=== PATIENT | female | born 1935 | race African-American/Black ===

== ENCOUNTER → 2019-08-16 | Outpatient (CLI) | payer MEDICARE, OTHER ==
--- NOTE | 2019-08-16 16:19 | CARD ---
MR#: [id number] Date of Study: 08/16/2019 Ordering Physician: ODALYS WALDRON, Referring Physician: ODALYS WALDRON, Tech: Mayela Leblanc MARIE APPROVED REPORT EXAM: Two-dimensional and M-mode echocardiogram with Doppler and color Doppler. Other Information Quality : GoodHR: 62bpm Rhythm : NSR INDICATION CAD 2D DIMENSIONS RVDd2.9 (2.9-3.5cm)Left Atrium(2D)3.4 (1.6-4.0cm) IVSd1.2 (0.7-1.1cm)Aortic Root(2D)3.3 (2.0-3.7cm) LVDd5.4 (3.9-5.9cm)LVOT Diameter1.9 (1.8-2.4cm) PWd0.9 (0.7-1.1cm)LVDs4.2 (2.5-4.0cm) FS (%) 21.5 %SV60.5 ml M-Mode DIMENSIONS Left Atrium(MM)4.18 (2.5-4.0cm)Aortic Root3.48 (2.2-3.7cm) Aortic Valve AoV Peak Bruce.137.1cm/sAoV VTI27.5cm AO Peak GR.7.5mmHgLVOT Peak Bruce.118.8cm/s LVOT VTI 26.48cmAO Mean GR.4mmHg SHRUTHI (VMAX)2.64hh9TGN (VTI)2.59cm2 AI P 1/2 [id number] Mitral Valve MV E Hrxdnnhz533.5cm/sMV E Peak Gr.102mmHg MV DECEL [id number] A Pcekhykr570.7cm/s MV E Mean Gr.6mmHgE/A Ratio1.2 Pulmonary Valve PV Peak Wdqtmfnr354.7cm/sPV Peak Grad.9mmHg Tricuspid Valve TR P. Nhwynxyd973lj/sRAP TYUVNOJR4plPj TR Peak Gr.01glZeOEMO08vbIy Pulmonary Vein S1 Xiaymhnx42.1cm/sD2 Yqigqsrv61.1cm/s Shunt Evaluation Systemic Diam27.0cmPulmonic Diam34.0cm LEFT VENTRICLE The left ventricle is normal size. Proximal septal thickening is noted. The left ventricular systolic function is normal and the ejection fraction is within normal range. The Ejection Fraction is 55-60% . There is normal LV segmental wall motion. Transmitral Doppler flow pattern is Grade II-pseudonormal filling dynamics. No left ventricle thrombus noted on this study. There is a small to moderate sized muscular ventricular septal defect. There is no left ventricular aneurysm. There is no mass noted in the left ventricle. RIGHT VENTRICLE The right ventricle is normal size. There is normal right ventricular wall thickness. The right ventr icular systolic function is normal. ATRIA The left atrium is mildly dilated. The right atrium is mildly dilated. The interatrial septum is inta ct with no evidence for an atrial septal defect or patent foramen ovale as noted on 2-D or Doppler im aging. AORTIC VALVE The aortic valve is thickened but opens well. The aortic valve is trileaflet. Doppler and Color Flow revealed mild aortic regurgitation. There is no significant aortic valvular stenosis. There is no aor tic valvular vegetation. MITRAL VALVE Mitral annular calcification is moderate. There is no evidence of mitral valve prolapse. There is mil d mitral valve stenosis. Doppler and Color-flow revealed mild to moderate mitral regurgitation. TRICUSPID VALVE The tricuspid valve is normal in structure and function. Doppler and Color Flow revealed mild tricusp id regurgitation. There is no tricuspid valve prolapse or vegetation. There is no tricuspid valve mary nosis. PULMONIC VALVE The pulmonary valve is normal in structure and function. Doppler and Color Flow revealed no pulmonic valvular regurgitation. There is no pulmonic valvular stenosis. GREAT VESSELS The aortic root is normal in size. The ascending aorta is normal in size. The IVC is normal in size a nd collapses >50% with inspiration. PERICARDIAL EFFUSION There is no evidence of significant pericardial effusion. Critical Notification Critical Value: No <Conclusion> The left ventricle is normal size. The left ventricular systolic function is normal and the ejection fraction is within normal range. The Ejection Fraction is 55-60%. There is a small to moderate sized muscular ventricular septal defect. Doppler and Color Flow revealed mild aortic regurgitation. There is no significant aortic valvular stenosis. There is mild mitral valve stenosis. Doppler and Color-flow revealed mild to moderate mitral regurgitation. Doppler and Color Flow revealed mild tricuspid regurgitation. Signed by : Camron Thomson MD Electronically Approved : 08/16/2019 16:18:57
== END | disposition home or self-care (01) ==
LOC: ECHO 13:46
PROVIDERS: ATTEND Internal Medicine Cardiovascular Disease
DX: I08.3 Combined rheumatic disorders of mitral, aortic and tricuspid valves (principal); I25.10 Atherosclerotic heart disease of native coronary artery without angina pectoris
CPT/HCPCS: 93306

== ENCOUNTER 2021-01-07 14:29 | Inpatient (IN) | payer OTHER ==
[~2021-01-07] VITALS: Ht 165.1 cm; Wt 54.6 kg
--- NOTE | 2021-01-07 14:51 | PHYS DOC ---
Adult General HPI HPI Patient is a 85-year-old female presenting for shortness of breath. Reports onset was a few days ago but worsened yesterday evening. Reports laying flat and physical exertion makes worse, nothing known makes better. Denies any pain, no fever, recent sick contacts or long distance travel. Recently moved here from [facility] and establish care with Dr. Sutherland. She is pending disassembler product consultation in outpatient setting with [facility]. Has history of CVA and is on aspirin and Plavix therapy but denies any other known history of CAD or SD. Patient also admits being immunocompromise, has history of rheumatoid arthritis and takes methotrexate and daily 5 mg prednisone Review of Systems Review of Systems Fourteen body systems of review of systems have been reviewed. See HPI for pertinent positives and negative responses, other grimes all other systems are negative, non-pertinent or non-contributory Current Medications Current Medications Current Medications Nitroglycerin (Nitrostat) 0.4 mg PRN Q5MIN PRN SL CHEST PAIN Last administered on 01/07/21at 16:18; Start 01/07/21 at 16:00 Physical Exam Physical Exam Constitutional: Well developed, well nourished, no acute distress, non-toxic appearance. HENT: Normocephalic, atraumatic, bilateral external ears normal, oropharynx moist, no oral exudates, nose normal. Eyes: PERRLA, EOMI, conjunctiva normal, no discharge. Neck: Normal range of motion, no tenderness, supple, no stridor. Cardiovascular: Heart rate regular, sinus rhythm, no murmurs rubs or gallops, patient did become dyspneic when laid supine Lungs & Thorax: No overt respiratory failure but there is crackles and rales in bilateral lung lobes, patient is breathing through pursed lips and tachypneic Abdomen: Bowel sounds normal, soft, no tenderness, no masses, no pulsatile masses. Nonsurgical abdomen, no peritoneal signs Skin: Warm, dry, no erythema, no rash. Back: No tenderness, no CVA tenderness. Extremities: No tenderness, no cyanosis, no clubbing, ROM intact, no edema. Neurologic: Alert and oriented X 3, grossly normal motor & sensory function, no focal deficits noted. Psychologic: Depressed affect and mood Current Patient Data Vital Signs Vital Signs Date Time Temp Pulse Resp B/P (MAP) Pulse Ox O2 Delivery O2 Flow Rate FiO2 01/07/21 14:35 97.9 76 32 193/83 (119) 96 Room Air Vital Signs Date Time Temp Pulse Resp B/P (MAP) Pulse Ox O2 Delivery O2 Flow Rate FiO2 01/07/21 16:29 72 20 164/76 (105) 94 Room Air 01/07/21 14:35 97.9 Lab Results Laboratory Tests Test 01/07/21 15:55 White Blood Count 6.2 x10^3/uL Red Blood Count 2.89 x10^6/uL Hemoglobin 8.3 g/dL Hematocrit 25.8 % Mean Corpuscular Volume 89 fL Mean Corpuscular Hemoglobin 29 pg Mean Corpuscular Hemoglobin Concent 32 g/dL Red Cell Distribution Width 19.6 % Platelet Count 221 x10^3/uL Neutrophils (%) (Auto) 72 % Lymphocytes (%) (Auto) 15 % Monocytes (%) (Auto) 9 % Eosinophils (%) (Auto) 4 % Basophils (%) (Auto) 1 % Neutrophils # (Auto) 4.4 x10^3uL Lymphocytes # (Auto) 0.9 x10^3/uL Monocytes # (Auto) 0.5 x10^3/uL Eosinophils # (Auto) 0.2 x10^3/uL Basophils # (Auto) 0.1 x10^3/uL Sodium Level 143 mmol/L Potassium Level 3.8 mmol/L Chloride Level 107 mmol/L Carbon Dioxide Level 22 mmol/L Anion Gap 14 Blood Urea Nitrogen 14 mg/dL Creatinine 1.2 mg/dL Estimated GFR (Cockcroft-Gault) 51.7 Glucose Level 148 mg/dL Calcium Level 8.6 mg/dL Troponin I Quantitative 0.097 ng/mL DZ-Zxx-N-Type Natriuretic Peptide 65951 pg/mL Current Medications Medications (Trade) Dose Ordered Sig/Michael Route PRN Reason Start Time Stop Time Status Last Admin Dose Admin Nitroglycerin (Nitrostat) 0.4 mg PRN Q5MIN PRN SL CHEST PAIN 01/07/21 16:00 01/07/21 16:18 EKG EKG EKG ordered and interpreted by myself at 1450 hrs. as sinus rhythm at 76 bpm, prolonged QRS at 136 and QTC at 486 otherwise unremarkable intervals, no axis deviation, LBBB with negative Sgarbossa criteria, no STEMI Radiology/Procedures Radiology/Procedures EXAM: Chest, single view. HISTORY: Shortness of breath. COMPARISON: None. FINDINGS: A frontal view of the chest obtained. There is diffuse mixed interstitial and alveolar infiltrate with small pleural effusions and cardiomega ly. There are median sternotomy changes. There is no pneumothorax. IMPRESSION: Diffuse mixed interstitial and alveolar infiltrate with small pleural effusions and cardiomegaly. Correlate for congestion. Electronically signed by: Allison Kyle MD (01/07/2021 3:52 PM) [id number] Heart Score C/O Chest Pain: No HEART Score for Chest Pain: HEART Score for Chest Pain Response (Comments) Value History Moderately Suspicious 1 ECG Nonspecific Repolarizatio 1 Age > 65 2 Risk Factors >3 Risk Factors or Hx CAD 2 Troponin >1-<3x Normal Limit 1 Total 7 Risk Factors: Risk Factors: DM, Current or recent (<one month) smoker, HTN, HLP, family history of CAD, obesity. Risk Scores: Risk Factors: DM, Current or recent (<one month) smoker, HTN, HLP, family history of CAD, obesity. Course & Med Decision Making Course & Med Decision Making Airway patent, breathing unlabored, IV access and vitals obtained showing hypertensive and tachypneic patient HPI limited due to the fact that patient is a poor historian. Physical exam concerning for pulmonary congestion. ER work-up obtained showing fluid overloaded patient. Prior paperwork reviewed, appears patient was discontinued from Lasix 1 month ago. Patient has midline chest incision and sternotomy wires but is unsure if she had prior CABG, it is unknown if she has history of CHF or other cardiac diagnoses or why she is following up with cardiology Regardless, I discussed the fact that patient is fluid overloaded that is likely causing her elevated troponin. No indication for emergent or surgical pathology but patient is not fit for discharge home at present. 80 mg IV Lasix, 162 mg aspirin, and x1 sublingual nitro administered I contacted hospitalist and discussed need for admission, he agreed to accept patient under his care for continued inpatient medical management I updated patient and daughter at bedside on proposed plan of care that included hospital admission, they were amenable. They confirm patient is DNR status at this time Critical Care Time This patient required critical care. Due to the fact that the patient required a significant amount of one on one physician - patient contact time, ordering and review of studies, arranging urgent treatment with development of a management plan, evaluation of patients response to treatment with frequent reassessments, and discussions with other providers this patient required 50 minutes of critical care time. Critical care time was indicated due to the inherent instability and/or potential for instability in this patient. The critical care time that is allocated to this patient is above and beyond any time spent on any other billable procedures performed on this patient. Dragon Disclaimer Dragon Disclaimer This electronic medical record was generated, in whole or in part, using a voice recognition dictation system. Departure Departure: Impression: Primary Impression: Fluid overload Additional Impressions: HTN (hypertension) History of CVA (cerebrovascular accident) Rheumatoid arthritis Elevated troponin Disposition: ADMITTED INPATIENT Admitting Physician: Carlton Thibodeaux Condition: STABLE Referrals: JOANIE SUTHERLAND MD (PCP) Problem Qualifiers HOA RAZA DO Jan 07, 2021 14:51
--- NOTE | 2021-01-07 15:34 | EKG ---
[address] [address] Test Date: 2021-01-07 Test Time: 14:44:27 Pat Name: MARISELA JOHNSON Department: Room: Gender: F Director Of Broadcast: BLAKE : 1935 Requested By: HOA RAZA Order Number: [id number] Reading MD: Measurements Intervals [place] Rate: 76 P: 9 MS: 134 QRS: 20 QRSD: 136 T: 40 QT: 428 QTc: 486 Interpretive Statements SINUS RHYTHM LEFT ATRIAL ABNORMALITY LEFT BUNDLE BRANCH BLOCK ABNORMAL ECG RI6.02 No previous ECG available for comparison
--- NOTE | 2021-01-07 15:55 | RAD ---
EXAM: Chest, single view. HISTORY: Shortness of breath. COMPARISON: None. FINDINGS: A frontal view of the chest obtained. There is diffuse mixed interstitial and alveolar infi ltrate with small pleural effusions and cardiomegaly. There are median sternotomy changes. There is n o pneumothorax. IMPRESSION: Diffuse mixed interstitial and alveolar infiltrate with small pleural effusions and cardi omegaly. Correlate for congestion. Electronically signed by: Allison Kyle MD (01/07/2021 3:52 PM) [id number]
[2021-01-07] MEDS ORDERED: NITROGLYCERIN SUBLINGUAL 0.4 MG BOTTLE OF 25. SL PRN ×2 (16:00→17:30)
[2021-01-07 16:13] LABS: BASO # 0.1 x10^3/uL (0.0-0.2); BASO % 1 % (0-3); EOS # 0.2 x10^3/uL (0.0-0.7); EOS % 4 % (0-3); HEMATOCRIT 25.8 % (36.0-47.0); HEMOGLOBIN 8.3 g/dL (12.0-15.5); LYMPH # 0.9 x10^3/uL (1.0-4.8); LYMPH % 15 % (24-48); MEAN CORPUSCULAR HEMOGLOBIN 29 pg (25-35); MEAN CORPUSCULAR HGB CONC 32 g/dL (31-37); MEAN CORPUSCULAR VOLUME 89 fL (79-100); MONO # 0.5 x10^3/uL (0.0-1.1); MONO % 9 % (0-9); NEUT # 4.4 x10^3uL (1.8-7.7); NEUT % 72 % (31-73); PLATELET COUNT 221 x10^3/uL (140-400); RED BLOOD COUNT 2.89 x10^6/uL (3.50-5.40); RED CELL DISTRIBUTION WIDTH 19.6 % (11.5-14.5); WHITE BLOOD COUNT 6.2 x10^3/uL (4.0-11.0)
[2021-01-07 16:35] LABS: CALCIUM 8.6 mg/dL (8.5-10.1); CREATININE 1.2 mg/dL (0.6-1.0); GFR 51.7; POTASSIUM 3.8 mmol/L (3.5-5.1)
[2021-01-07] MEDS ORDERED: ASPIRIN CHEWABLE 81 MG TABLET. PO ONE (17:15)
[2021-01-07] MEDS ORDERED: FUROSEMIDE 40 MG/4 ML VIAL IVP ONE (17:15)
[2021-01-07] MEDS ORDERED: ONDANSETRON PF 4 MG/2 ML VIAL. IVP PRN (17:30)
[2021-01-07] MEDS ORDERED: ACETAMINOPHEN 325 MG TABLET PO PRN (17:30)
[2021-01-07] MEDS ORDERED: TIZA4TAB2 PO (19:27)
[2021-01-07] MEDS ORDERED: POTA-163 PO (19:27)
[2021-01-07] MEDS ORDERED: ALEN70TA71 PO (19:27)
[2021-01-07] MEDS ORDERED: DORZ10DR27 EACHEYE (19:27)
[2021-01-07] MEDS ORDERED: AMLO-187 PO (19:27)
[2021-01-07] MEDS ORDERED: CLOP75TA PO (19:27)
[2021-01-07] MEDS ORDERED: ASPI-889 PO (19:27)
[2021-01-07] MEDS ORDERED: CHOL400T36 PO (19:27)
[2021-01-07] MEDS ORDERED: PRED2.5T PO (19:27)
[2021-01-07] MEDS ORDERED: TRAV5DRO EACHEYE (19:27)
[2021-01-07] MEDS ORDERED: CYAN100031 PO (19:27)
[2021-01-07] MEDS ORDERED: FLUT9.9S NS (19:27)
[2021-01-07] MEDS ORDERED: ATORVASTATIN CA80 MG PO (19:27)
[2021-01-07] MEDS ORDERED: METH2.5T PO (19:27)
[2021-01-07] MEDS ORDERED: CARV25TA2 PO (19:27)
[2021-01-07] MEDS ORDERED: FOLI20CA PO (19:27)
[2021-01-07] MEDS ORDERED: ESOM20CA PO (19:27)
[2021-01-07 19:30] VITALS: BP 182/81
[2021-01-07] MEDS ORDERED: tiZANidine 4 MG TABLET. PO PRN (19:45)
[2021-01-07] MEDS ORDERED: POTASSIUM CHLORIDE 20 MEQ TABLET.ER. PO ONE (20:00)
[2021-01-07] MEDS ORDERED: FUROSEMIDE 100 MG/10 ML VIAL IVP ONE (21:00)
[2021-01-07] MEDS: ATORVASTATIN CALCIUM 20 MG TABLET PO SCH (21:08)
[2021-01-07] MEDS: CHOLECALCIFEROL (VITAMIN D3) 1,000 UNIT TABLET PO SCH (21:08)
[2021-01-08 06:21] VITALS: BP 156/69
--- NOTE | 2021-01-08 08:10 | PDOC2 ---
MELISSA FLOWER LANA 01/08/21 0810: CARDIAC CONSULT DATE OF CONSULT DOS: DATE: 01/08/21 TIME: 08:07 REASON FOR CONSULT Reason for Consult CHF REFERRING PHYSICIAN Referring Physician Dr. Thibodeaux SOURCE Source: Chart review, Patient HPI History of Present Illness This is an 85 yo female who presented secondary to shortness of breath. Reports she has been short of breath for the last couple of days. Progressively worsened. No chest pain, palpitations, dizziness, diaphoresis, or nausea/vomiting. Feels better s/p IV diuresis. No LE edema. PAST MEDICAL HISTORY Cardiovascular: CAD, CHF, HTN, hyperipidemia, Other (HOCM) CENTRAL NERVOUS SYSTEM: CVA GI: GERD Endocrine: Diabetes PAST SURGICAL HISTORY Past Surgical History: Cholecystectomy, Hysterectomy, Other (myomectomy ) FAMILY HISTORY Family History: Hypertension SOCIAL HISTORY Smoke: No ALCOHOL: none Drugs: None Lives: with Family CURRENT MEDICATIONS Current Medications Current Medications Nitroglycerin (Nitrostat) 0.4 mg PRN Q5MIN PRN SL CHEST PAIN Last administered on 01/07/21at 16:18; Start 01/07/21 at 16:00 Furosemide (Lasix) 80 mg 1X ONCE IVP Last administered on 01/07/21at 17:25; Start 01/07/21 at 17:15; Stop 01/07/21 at 17:16; Status DC Aspirin (Aspirin Chewable) 162 mg 1X ONCE PO Last administered on 01/07/21at 17:23; Start 01/07/21 at 17:15; Stop 01/07/21 at 17:17; Status DC Ondansetron HCl (Zofran) 4 mg PRN Q4HRS PRN IVP NAUSEA/VOMITING; Start 01/07/21 at 17:30; Stop 01/08/21 at 17:29 Acetaminophen (Tylenol) 650 mg PRN Q4HRS PRN PO FEVER > 100.3'F; Start 01/07/21 at 17:30; Stop 01/08/21 at 17:29 Nitroglycerin (Nitrostat) 0.4 mg PRN Q5MIN PRN SL CHEST PAIN; Start 01/07/21 at 17:30; Stop 01/08/21 at 17:29 Amlodipine Besylate (Norvasc) 10 mg DAILY PO ; Start 01/08/21 at 09:00 Aspirin (Aspirin Enteric Coated) 81 mg DAILY PO ; Start 01/08/21 at 09:00 Clopidogrel Bisulfate (Plavix) 75 mg DAILY PO ; Start 01/08/21 at 09:00 Dorzolamide/ Timolol (Cosopt) 1 drop BID OU ; Start 01/08/21 at 09:00 Tizanidine HCl (Zanaflex) 4 mg PRN Q8HRS PRN PO MUSCLE SPASMS; Start 01/07/21 at 19:45 Atorvastatin Calcium (Lipitor) 80 mg QHS PO Last administered on 01/07/21at 21:08; Start 01/07/21 at 21:00 Carvedilol (Coreg) 25 mg BIDWMEALS PO ; Start 01/08/21 at 08:00 Vitamin D (Vitamin D3) 1,000 unit BID PO Last administered on 01/07/21at 21:08; Start 01/07/21 at 21:00 Cyanocobalamin (Vitamin B-12) 1,000 mcg DAILY PO ; Start 01/08/21 at 09:00 Pantoprazole Sodium (Protonix) 40 mg DAILYAC PO ; Start 01/08/21 at 07:30 Fluticasone Propionate (Flonase) 2 spray DAILY NS ; Start 01/08/21 at 09:00 Folic Acid (Folic Acid) 1 mg DAILY PO ; Start 01/08/21 at 09:00 Potassium Chloride (Klor-Con) 20 meq BIDWMEALS PO ; Start 01/08/21 at 08:00 Prednisone (Prednisone) 5 mg DAILY PO ; Start 01/08/21 at 09:00 Latanoprost (Xalatan) 1 drop QHS OD ; Start 01/08/21 at 21:00 Furosemide (Lasix) 80 mg 1X ONCE IVP Last administered on 01/07/21at 21:08; Start 01/07/21 at 21:00; Stop 01/07/21 at 21:01; Status DC Potassium Chloride (Klor-Con) 20 meq 1X ONCE PO Last administered on 01/07/21at 21:07; Start 01/07/21 at 20:00; Stop 01/07/21 at 20:01; Status DC Active Scripts Active Reported Travatan Z (Travoprost) 5 Ml Drops 1 Drop EACHEYE QHS Tizanidine Hcl (Tizanidine HCl) 4 Mg Tablet 4 Mg PO PRN Q8HRS PRN Prednisone 2.5 Mg Tablet 2 Tab PO DAILY Potassium Chloride 20 Meq Tablet.er 20 Meq PO BID Methotrexate (Methotrexate Sodium) 2.5 Mg Tablet 4 Tab PO WEEKLY Folic Acid 20 Mg Capsule 1 Cap PO DAILY 30 Days Flonase Allergy Relief (Fluticasone Propionate) 9.9 Ml [place].susp 2 Sprays NS DAILY Nexium Capsule (Esomeprazole Magnesium) 20 Mg Capsule.dr 1 Cap PO DAILY Dorzolamide-Timolol Eye Drops (Dorzolamide Hcl/Timolol Maleat) 10 Ml Drops 1 Drop EACHEYE BID B-12 (Cyanocobalamin (Vitamin B-12)) 1,000 Mcg Tablet.er 1 Tab PO DAILY 30 Days Clopidogrel (Clopidogrel Bisulfate) 75 Mg Tablet 1 Tab PO DAILY Vitamin D (Cholecalciferol (Vitamin D3)) 400 Unit Tablet 1,000 Unit PO BID Carvedilol 25 Mg Tablet 25 Mg PO BIDWMEALS Atorvastatin Calcium 80 Mg Tablet 1 Tab PO DAILY Aspirin Ec (Aspirin) 81 Mg Tablet.dr 1 Tab PO DAILY Amlodipine Besylate 10 Mg Tablet 1 Tab PO DAILY Alendronate Sodium 70 Mg Tablet 1 Tab PO WEEKLY ALLERGIES Allergies: Coded Allergies: Sulfa (Sulfonamide Antibiotics) (Verified Allergy, Intermediate, 01/07/21) angiotensin II acetate, human (Verified Allergy, Intermediate, 01/07/21) minoxidil (Verified Allergy, Intermediate, 01/07/21) ROS Review of Systems 14 point ROS conducted with pertinent positives noted above in hPI PHYSICAL EXAM General: Alert, Cooperative, No acute distress, Other (oriented to person and place ) HEENT: Atraumatic Lungs: Other (crackles ) Heart: Regular rate, Other (4/6 systolic murmur ) Abdomen: Soft, No tenderness Extremities: No edema Neuro: Normal speech, Sensation intact Psych/Mental Status: Mood NL, Other (forgetful) MUSCULOSKELETAL: Osteoarthritic changes both hands VITALS Vital Signs Vital Signs Date Time Temp Pulse Resp B/P (MAP) Pulse Ox O2 Delivery O2 Flow Rate FiO2 01/08/21 06:21 72 20 156/69 (98) 96 Room Air 01/07/21 19:30 98.4 LABS LABS Laboratory Tests Test 01/07/21 15:55 01/07/21 20:00 01/07/21 22:40 White Blood Count 6.2 x10^3/uL (4.0-11.0) Red Blood Count 2.89 x10^6/uL (3.50-5.40) Hemoglobin 8.3 g/dL (12.0-15.5) Hematocrit 25.8 % (36.0-47.0) Mean Corpuscular Volume 89 fL (79-100) Mean Corpuscular Hemoglobin 29 pg (25-35) Mean Corpuscular Hemoglobin Concent 32 g/dL (31-37) Red Cell Distribution Width 19.6 % (11.5-14.5) Platelet Count 221 x10^3/uL (140-400) Neutrophils (%) (Auto) 72 % (31-73) Lymphocytes (%) (Auto) 15 % (24-48) Monocytes (%) (Auto) 9 % (0-9) Eosinophils (%) (Auto) 4 % (0-3) Basophils (%) (Auto) 1 % (0-3) Neutrophils # (Auto) 4.4 x10^3uL (1.8-7.7) Lymphocytes # (Auto) 0.9 x10^3/uL (1.0-4.8) Monocytes # (Auto) 0.5 x10^3/uL (0.0-1.1) Eosinophils # (Auto) 0.2 x10^3/uL (0.0-0.7) Basophils # (Auto) 0.1 x10^3/uL (0.0-0.2) Sodium Level 143 mmol/L (136-145) Potassium Level 3.8 mmol/L (3.5-5.1) Chloride Level 107 mmol/L (98-107) Carbon Dioxide Level 22 mmol/L (21-32) Anion Gap 14 (6-14) Blood Urea Nitrogen 14 mg/dL (7-20) Creatinine 1.2 mg/dL (0.6-1.0) Estimated GFR (Cockcroft-Gault) 51.7 Glucose Level 148 mg/dL (70-99) Calcium Level 8.6 mg/dL (8.5-10.1) Troponin I Quantitative 0.097 ng/mL (0-0.055) 0.098 ng/mL (0-0.055) 0.097 ng/mL (0-0.055) ZS-Ssi-H-Type Natriuretic Peptide 08335 pg/mL (0-449) ECHOCARDIOGRAM Echocardiogram <Conclusion> The left ventricle is normal size. The left ventricular systolic function is normal and the ejection fraction is within normal range. The Ejection Fraction is 55-60%. There is a small to moderate sized muscular ventricular septal defect. Doppler and Color Flow revealed mild aortic regurgitation. There is no significant aortic valvular stenosis. There is mild mitral valve stenosis. Doppler and Color-flow revealed mild to moderate mitral regurgitation. Doppler and Color Flow revealed mild tricuspid regurgitation. DATE: 08/16/191458 ASSESSMENT/PLAN Assessment/Plan 1. Dyspnea with acute on chronic diastolic CHF; Echo 09/02 with preserved LV systolic function as noted above. 2. Mild troponin elevation; trop peak 0.098. Most probably type II, demand ischemia 3. Hypertensive urgency; remains elevated 4. Hyperlipidemia; statin 5. H/o CVA 6. H/o HOCM s/p myomectomy 2014 7. PAD s/p CONTROLLED AREA CHECKER/stent to LLE. clinically stable Recommendations Diuresis with monitoring of labs Echo to assess LV systolic function Home antiHTN therapy resumed. Monitor trends and titrate therapy as warranted Continue secondary prevention Supportive care LACY MUKHERJEE MD 01/08/21 2244: CARDIAC CONSULT ASSESSMENT/PLAN Assessment/Plan Patient seen and examined. Agree with [employer]'s assessment and plan. Continue diuresis for ac on chr diastolic HF Slight trop elevation prob demand ischemia HOCM s/p myectomy clinically stable Check 2D echo to assess LVF and rule out WMA Resume home hypertensives and titrate for better control Plan ischemic evaluation as outpatient Thank you for your consultation MELISSA FLOWER APRN Jan 08, 2021 08:10 LACY MUKHERJEE MD Jan 08, 2021 22:44
--- NOTE | 2021-01-08 08:17 | HP ---
ADMIT DATE: 01/07/2021 ATTENDING PHYSICIAN: Dr. Thibodeaux. CHIEF COMPLAINT: Shortness of breath. HISTORY OF PRESENT ILLNESS: The patient is an 85-year-old female admitted through the ED with increasing shortness of breath, dyspnea with exertion and orthopnea. She has underlying dementia. She is a DNR per advanced directive. She has had a longstanding history of heart disease with previous coronary artery bypass and graft. Those details are in charts in [place], [place]. She recently moved here to live with her daughter. Dr. Sutherland is a new PCP. She has also rheumatoid arthritis along with her heart disease. She could not give much history due to her dementia and possible previous stroke. ALLERGIES: SHE HAS ALLERGIES TO SULFA DRUGS, ANGIOTENSIN INHIBITORS AND MINOXIDIL. CURRENT MEDICATIONS: Include alendronate weekly, amlodipine, aspirin, Lipitor, Coreg 25 b.i.d., vitamin D3, Plavix, dorzolamide eye drops, Nexium, fluticasone, folic acid, methotrexate 4 tabs weekly most likely total of 10 mg, potassium supplementation, prednisone, tizanidine and Xalatan eyedrops. SOCIAL HISTORY: She is a nonsmoker, nondrinker. FAMILY HISTORY: Unobtainable due to the patient's confusion. REVIEW OF SYSTEMS: Significant for the shortness of breath. No chest pain, palpitations. No COVID exposure. No fevers. All other systems reviewed and turned to be negative. PHYSICAL EXAMINATION: GENERAL: When I saw her, this is a pleasant elderly female who is mildly confused. INITIAL VITAL SIGNS: Showed blood pressure 164/76, pulse is 72 and regular. She is afebrile. Oxygen saturation 96% on room air. HEENT: Head is without trauma. Pupils are reactive. Sclerae nonicteric. Oropharynx clear. NECK: Supple, no bruits identified. LUNGS: Bibasilar crackles. CARDIOVASCULAR: Showed regular heart tones, distant. No obvious gallops. Peripheral pulses are palpable and full. ABDOMEN: Soft, scaphoid, nontender. EXTREMITIES: Without edema. She has old degenerative changes consistent with rheumatoid arthritis that is longstanding. SKIN: Warm and dry. NEUROLOGIC STATUS: Pleasantly confused. She is nonambulatory at this time. We did not assess her gait. PERTINENT LABORATORY DATA: Hemoglobin is 8.3 g/dL with a white count of 6200. Chemistries: Potassium of 3.8 mEq, creatinine 1.2 mg/dL. Three sets of cardiac enzymes were 0.09, 0.09 and 0.09. Her BNP was 11,735. ASSESSMENT: 1. An 85-year-old female with ischemic cardiomyopathy. 2. Known coronary artery disease with previous bypass and graft. 3. Congestive heart failure. I saw a report of echocardiogram done in 09/2019. 4. Elevated troponins due to stress demand ischemia. 5. Rheumatoid arthritis. 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 PLAN: 1. Admit to the ICU. 2. Diuresis. Lasix has been ordered. 3. Fluid restriction. 4. Daily weights. 5. Serial chemistries. 6. I will ask Cardiology to see her for evaluation. JUMANA DR: ALIN/gely TID: [id number] CC: JOANIE SUTHERLAND MD
[2021-01-08] MEDS ORDERED: FLUTICASONE 50MCG/NASAL SPRAY 16GM BOTTLE. NS SCH (09:00)
[2021-01-08] MEDS: amLODIPine BESYLATE 10 MG TABLET PO SCH (09:59)
[2021-01-08] MEDS: FOLIC ACID 1 MG TABLET PO SCH (09:59)
[2021-01-08] MEDS: ASPIRIN ENTERIC COATED 81 MG TABLET.DR. PO SCH (09:59)
[2021-01-08] MEDS: CYANOCOBALAMIN (VITAMIN B-12) 1,000 MCG TABLET. PO SCH (09:59)
[2021-01-08] MEDS: CHOLECALCIFEROL (VITAMIN D3) 1,000 UNIT TABLET PO SCH ×2 (09:59→20:12)
[2021-01-08] MEDS: CARVEDILOL 12.5 MG TABLET PO SCH ×2 (10:00→17:44)
[2021-01-08] MEDS: PANTOPRAZOLE 40 MG TABLET. PO SCH (10:00)
[2021-01-08] MEDS: CLOPIDOGREL BISULFATE 75 MG TABLET PO SCH (10:00)
[2021-01-08] MEDS: predniSONE 5 MG TABLET PO SCH (10:00)
[2021-01-08] MEDS: POTASSIUM CHLORIDE 20 MEQ TABLET.ER. PO SCH ×2 (10:00→17:45)
[2021-01-08] MEDS: DORZOLAMIDE/TIMOLOL 2%/0.5% OPHTH SOLUTION 10ML BOTTLE. OU SCH ×2 (10:02→20:12)
[2021-01-08 16:00] VITALS: BP 169/73
[2021-01-08 19:40] VITALS: BP 143/57
[2021-01-08] MEDS: ATORVASTATIN CALCIUM 20 MG TABLET PO SCH (20:12)
[2021-01-08] MEDS ORDERED: LATANOPROST 0.005% OPHTH SOLUTION 2.5ML BOTTLE. OD SCH (21:00)
[2021-01-09 05:19] VITALS: BP 145/63
--- NOTE | 2021-01-09 08:08 | PDOC ---
CARDIO Progress Notes Date & Time Date of Service DATE: 01/09/21 TIME: 08:05 Time of Evaluation 08:05 Subjective Notes SOA better. No chest pain, dizziness, diaphoresis Vitals Vitals Vital Signs Date Time Temp Pulse Resp B/P (MAP) Pulse Ox O2 Delivery O2 Flow Rate FiO2 01/09/21 05:19 70 17 145/63 (90) 98 Room Air 01/08/21 19:40 98.4 Weight Weight [ ] Input and Output I.O. Intake and Output 01/09/21 07:00 Intake Total 500 ml Output Total 400 ml Balance 100 ml Intake Oral 500 ml Output Urine Total 400 ml Laboratory Labs Laboratory Tests Test 01/07/21 15:55 01/07/21 20:00 01/07/21 22:40 White Blood Count 6.2 x10^3/uL (4.0-11.0) Red Blood Count 2.89 x10^6/uL (3.50-5.40) Hemoglobin 8.3 g/dL (12.0-15.5) Hematocrit 25.8 % (36.0-47.0) Mean Corpuscular Volume 89 fL (79-100) Mean Corpuscular Hemoglobin 29 pg (25-35) Mean Corpuscular Hemoglobin Concent 32 g/dL (31-37) Red Cell Distribution Width 19.6 % (11.5-14.5) Platelet Count 221 x10^3/uL (140-400) Neutrophils (%) (Auto) 72 % (31-73) Lymphocytes (%) (Auto) 15 % (24-48) Monocytes (%) (Auto) 9 % (0-9) Eosinophils (%) (Auto) 4 % (0-3) Basophils (%) (Auto) 1 % (0-3) Neutrophils # (Auto) 4.4 x10^3uL (1.8-7.7) Lymphocytes # (Auto) 0.9 x10^3/uL (1.0-4.8) Monocytes # (Auto) 0.5 x10^3/uL (0.0-1.1) Eosinophils # (Auto) 0.2 x10^3/uL (0.0-0.7) Basophils # (Auto) 0.1 x10^3/uL (0.0-0.2) Sodium Level 143 mmol/L (136-145) Potassium Level 3.8 mmol/L (3.5-5.1) Chloride Level 107 mmol/L (98-107) Carbon Dioxide Level 22 mmol/L (21-32) Anion Gap 14 (6-14) Blood Urea Nitrogen 14 mg/dL (7-20) Creatinine 1.2 mg/dL (0.6-1.0) Estimated GFR (Cockcroft-Gault) 51.7 Glucose Level 148 mg/dL (70-99) Calcium Level 8.6 mg/dL (8.5-10.1) Troponin I Quantitative 0.097 ng/mL (0-0.055) 0.098 ng/mL (0-0.055) 0.097 ng/mL (0-0.055) OO-Gvw-D-Type Natriuretic Peptide 48484 pg/mL (0-449) Physical Exams HEENT: Neck Supple W Full Motion Chest: Symmetric Lungs: Clear to Auscultation Heart: RRR Abdomen: Soft N/T Extremities: No Edema Neurology: alert, follow commands, confused Assessment Assessment 1. Dyspnea with acute on chronic diastolic CHF; Echo 09/02 with preserved LV sys tolic function as noted above. Improved s/p diuresis. appears compensated 2. Mild troponin elevation; trop peak 0.098. Most probably type II, demand ischemia 3. Hypertensive urgency; better controlled 4. Hyperlipidemia; statin 5. H/o CVA 6. H/o HOCM s/p myomectomy 2014 7. PAD s/p PAPER HANDLER/stent to LLE. clinically stable Recommendations Echo today to assess LV systolic function Continue secondary prevention Could consider outpatient ischemic evaluation depending upon goals of care Supportive care Follow up with Dr. Stephen February 21 at 12:45pm in our [place] office. MELISSA FLOWER APRN Jan 09, 2021 08:08
--- NOTE | 2021-01-09 08:20 | RAD ---
INDICATION: Reason: CHF / Spl. Instructions: / History: COMPARISON: Earlier same day FINDINGS: 2 view of chest obtained. Poststernotomy changes with calcific atherosclerosis and enlarged cardiomediastinal silhouette. Interstitial and groundglass opacities bilaterally are again seen most confluent at lung bases. Blunt ing of the costophrenic angles. Osseous demineralization. Compression fracture near thoracic lumbar junction IMPRESSION: * Multifocal opacities throughout the bilateral lungs which could be from edema or infiltrate. Juanjo rable to prior. * Blunting costophrenic angle could be from small pleural effusion Electronically signed by: Constantin Colon MD (01/09/2021 8:17 AM) [id number]
[2021-01-09 09:00] VITALS: BP 158/59
[2021-01-09] MEDS: PANTOPRAZOLE 40 MG TABLET. PO SCH (09:11)
[2021-01-09 09:12] VITALS: BP 158/59
[2021-01-09 09:12] LABS: CALCIUM 8.5 mg/dL (8.5-10.1); CREATININE 1.2 mg/dL (0.6-1.0); GFR 51.7; MAGNESIUM 2.1 mg/dL (1.8-2.4); POTASSIUM 3.3 mmol/L (3.5-5.1)
[2021-01-09] MEDS: CHOLECALCIFEROL (VITAMIN D3) 1,000 UNIT TABLET PO SCH (09:12)
[2021-01-09] MEDS: CARVEDILOL 12.5 MG TABLET PO SCH (09:12)
[2021-01-09] MEDS: POTASSIUM CHLORIDE 20 MEQ TABLET.ER. PO SCH (09:12)
[2021-01-09] MEDS: amLODIPine BESYLATE 10 MG TABLET PO SCH (09:12)
[2021-01-09] MEDS: CYANOCOBALAMIN (VITAMIN B-12) 1,000 MCG TABLET. PO SCH (09:12)
[2021-01-09] MEDS: CLOPIDOGREL BISULFATE 75 MG TABLET PO SCH (09:13)
[2021-01-09] MEDS: FOLIC ACID 1 MG TABLET PO SCH (09:13)
[2021-01-09] MEDS: ASPIRIN ENTERIC COATED 81 MG TABLET.DR. PO SCH (09:13)
[2021-01-09] MEDS: predniSONE 5 MG TABLET PO SCH (09:13)
[2021-01-09] MEDS ORDERED: POTASSIUM CHLORIDE 20 MEQ TABLET.ER. PO ONE (09:30)
--- NOTE | 2021-01-09 12:18 | DS ---
DATE OF DISCHARGE: 01/09/2021 ATTENDING PHYSICIAN: Dr. Thibodeaux. FINAL DISCHARGE DIAGNOSES: 1. Acute on chronic diastolic congestive heart failure. 2. 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 3. Elevation of troponin due to stress demand ischemia. 4. Hypertension. 5. Hyperlipidemia. 6. Old cerebrovascular accident. 7. Peripheral artery disease with stent in the left lower leg. 8. Underlying dementia. HISTORY AND PHYSICAL: The patient is an 85-year-old female recently moved here from [place]. She had a stroke about 2 months ago. She also has a longstanding history of diastolic congestive heart failure with previous history of hypertrophic obstructive cardiomyopathy resulting in a myomectomy in [place]. PHYSICAL EXAMINATION: Please see the dictated note. PERTINENT LABORATORY AND X-RAY STUDIES: Admission chest x-ray showed florid congestive heart failure with bilateral pleural effusions, vascular congestion, postoperative changes and cardiomegaly. A followup x-ray done 2 days later showed marked improvement in clearing of the fluid. There is still blunting of the angles, but she had much better aeration, cardiomegaly remains. Laboratory studies, admission hemoglobin was 8.3 g/dL, white count 6200. Electrolytes: Sodium 143, potassium 3.8 mEq. This will be followed up as an outpatient. Creatinine is 1.2 mg/dL and stable. 3 sets of cardiac enzymes were recorded 0.09, 0.09 and 0.09. Her BNP was 11,735. HOSPITAL COURSE: The patient was hospitalized. We started her on diuresis. She has scheduled beta blockade. She cannot tolerate RAMSEY inhibitor due to previous allergies. Cardiology consultation was entertained. They felt that her elevation in enzymes were due to stress demand ischemia and not acute problem. She had no pains. She responded well to diuresis and we have a weight of 54 kilograms prior to discharge. On the third hospital day, she was discharged home and I gave instructions to her daughter and primary cellars supervisor, she needs daily weights every day along with a followup visit in 2 weeks. Echocardiogram has been scheduled. She has an appointment with Dr. Stephen as an outpatient on 02/21/2021 in 6 weeks' time. The patient was then discharged from our hospital in stable condition with explicit drug and followup care. Total discharge time spent 38 minutes. ALIN/YOSELIN DR: ALIN/gely TID: [id number] CC: JOANIE COSTA MD
== END 2021-01-09 10:40 | disposition home or self-care (01) | DRG 292 ==
LOC: ER 14:29 → ICU 17:18 → ER 18:05
PROVIDERS: ADMIT Hospitalist; ATTEND Hospitalist
DX: I11.0 Hypertensive heart disease with heart failure (principal); I24.8 Other forms of acute ischemic heart disease; I50.33 Acute on chronic diastolic (congestive) heart failure; I42.1 Obstructive hypertrophic cardiomyopathy; D64.9 Anemia, unspecified; E11.51 Type 2 diabetes mellitus with diabetic peripheral angiopathy without gangrene; E78.5 Hyperlipidemia, unspecified; F03.90 Unspecified dementia, unspecified severity, without behavioral disturbance, psychotic disturbance, mood disturbance, and anxiety; I16.0 Hypertensive urgency; I25.10 Atherosclerotic heart disease of native coronary artery without angina pectoris; I25.5 Ischemic cardiomyopathy; M06.9 Rheumatoid arthritis, unspecified; Z66 Do not resuscitate; K21.9 Gastro-esophageal reflux disease without esophagitis; Z82.49 Family history of ischemic heart disease and other diseases of the circulatory system; Z86.73 Personal history of transient ischemic attack (TIA), and cerebral infarction without residual deficits; Z90.710 Acquired absence of both cervix and uterus; Z95.1 Presence of aortocoronary bypass graft; Z98.62 Peripheral vascular angioplasty status; Z88.2 Allergy status to sulfonamides
CPT/HCPCS: 36415; 71045; 71046; 80048; 83735; 83880; 84484; 85025; 93005; J1940; J7512; 99291-25

== ENCOUNTER → 2021-06-19 | Outpatient (CLI) | payer MEDICARE, OTHER ==
[~2021-06-19] MED LIST: ALEN70TA71 PO; AMLO-187 PO; ASPI-889 PO; ATORVASTATIN CA80 MG PO; CARV25TA2 PO; CHOL400T36 PO; CLOP75TA PO; CYAN100031 PO; DORZ10DR27 EACHEYE; ESOM20CA PO; FLUT9.9S NS; FOLI20CA PO; METH2.5T PO; POTA-163 PO; PRED2.5T PO; TIZA-75 PO; TRAV5DRO EACHEYE
--- NOTE | 2021-06-19 14:13 | RAD ---
MR#: [id number] Date of Study: 06/19/2021 Ordering Physician: ODALYS STEPHEN, Referring Physician: ODALYS STEPHEN, Tech: Mayelin Dc RVT,FLORINDA APPROVED REPORT Patient Location: OUT-PATIENT Indications PAD Grayscale images of the bilateral lower extremity arterial vessels demonstrate moderate to severe dif fuse atherosclerotic plaquing. On the right side there are mostly triphasic waveforms above the knee and the common femoral artery t o the popliteal segment. Below the knee there is likely greater than 75% stenosis involving the dist al posterior tibial artery. There is also likely greater than 75% stenosis involving the distal ante rior tibial artery. There are monophasic waveforms in the peroneal artery. On the left side again no significant stenosis identified with triphasic and biphasic waveforms in th e common femoral artery to the popliteal segment. Below the knee the distal posterior tibial artery and the anterior tibial artery are occluded. There is one-vessel runoff in the form of the peroneal Risk Factors Hypertension TIA/CVA History Diabetes VELOCITY AND DOPPLER WAVEFORM ANALYSIS RIGHT cm/secWaveformSeverity LEFT cm/secWaveform Severity pCFA 116.3TriphasicpCFA 87.8Triphasic Prof Fem Art. 50.0BiphasicProf Fem Art. 51.0Biphasic Fem Art Prox. 69.0TriphasicFem Art Prox. 65.7Triphasic Fem Art Mid. 91.5TriphasicFem Art Mid. 64.5Triphasic Fem Art Dist. 115.7TriphasicFem Art Dist. 109.9Triphasic Pop Art(Fossa) 101.0TriphasicPop Art([place]) 89.7Triphasic W[employer] BUSINESS SEGMENT LEADER Prox. 31.2BiphasicPTA Prox. 35.5Biphasic W[employer] BUSINESS SEGMENT LEADER Dist. 8.1MonophasicPTA Dist. Occluded Per Art Prox. 67.3MonophasicPer Art Prox. 51.8Monophasic RAYRAY Prox. 50.4BiphasicATA Prox. Occluded DPA 15MonophasicDPA Occluded Critical Notification Critical Value: No <Conclusion> 1. No significant above-knee disease bilaterally 2. Probable subtotal occlusion of the distal right posterior tibial artery with two-vessel runoff in the form of peroneal and anterior tibial arteries. 3. Occluded distal posterior tibial and anterior tibial arteries on the left side. Signed by : Odalys Stephen, Electronically Approved : 06/19/2021 14:13:04
--- NOTE | 2021-06-19 14:16 | RAD ---
MR#: [id number] Date of Study: 06/19/2021 Ordering Physician: ODALYS STEPHEN, Referring Physician: ODALYS STEPHEN, Tech: Mayelin Dc, Sourav, MS APPROVED REPORT Patient Location: OUT-PATIENT Laterality:Bilateral Indications CVA/TIA: Grayscale images of the bilateral carotid vessels demonstrates mild diffuse intimal hyperplasia witho ut any focal obstructive plaque. Spectral waveforms and color Doppler are grossly within normal limi ts overall consistent with 0 to less than 50% stenosis. Normal antegrade vertebral velocities with n ormal ICA to CCA ratios bilaterally. Risk Factors Hypertension: Diabetes Doppler Spectral Velocity Analysis Right Left pCCA 39/8 cm/spCCA 47/8 cm/s mCCA 48/9 cm/smCCA 61/11 cm/s dCCA 45/9 cm/sdCCA 45/10 cm/s ECA 57/6 cm/sECA 59/5 cm/s pICA 47/9 cm/spICA 48/10 cm/s Lilo 74/17 cm/smICA 45/12 cm/s dICA 77/18 cm/sdICA 61/15 cm/s Vert. 37/8 cm/sVert. 38/10 cm/s ICA/CCA 1.60ICA/CCA 1.30 Critical Notification Critical Value: No <Conclusion> 1. No significant bilateral extracranial carotid occlusive disease. Signed by : Odalys Stephen, Electronically Approved : 06/19/2021 14:16:15
--- NOTE | 2021-06-20 07:54 | RAD ---
US DPLX ARTR EXTREM LOWER BILAT 06/19/2021 12:55 PM INDICATION: Peripheral arterial disease COMPARISON: None available. TECHNIQUE: Bilateral ABIs were obtained FINDINGS/ IMPRESSION: Right: Within normal limits. Brachial: 142 LAP MACHINE OPERATOR: 142 DPA: 130 Right WILNER: 1.0 Left: Abnormal, suggestive of at least moderate peripheral vascular disease. Brachial: 150 LAP MACHINE OPERATOR: 126 DPA: Not detected Left WILNER: 0.8 Electronically signed by: Simin Gil MD (06/20/2021 7:52 AM) [id number]
== END ==
LOC: US 12:24
PROVIDERS: ATTEND Internal Medicine Cardiovascular Disease
DX: I70.202 Unspecified atherosclerosis of native arteries of extremities, left leg (principal); I63.89 Other cerebral infarction; I10 Essential (primary) hypertension; E11.9 Type 2 diabetes mellitus without complications; I25.10 Atherosclerotic heart disease of native coronary artery without angina pectoris
CPT/HCPCS: 93880; 93923; 93925

== ENCOUNTER → 2021-07-10 | Outpatient (CLI) | payer MEDICARE, OTHER ==
--- NOTE | 2021-07-11 16:32 | CARD ---
MR#: [id number] Date of Study: 07/10/2021 Ordering Physician: ODALYS STEPHEN, Referring Physician: ODALYS STEPHEN, Tech: Dilcia Milton, [facility] APPROVED REPORT EXAM: Two-dimensional and M-mode echocardiogram with Doppler and color Doppler. Other Information Quality : AverageHR: 66bpm INDICATION Cardiac Disease: CAD RISK FACTORS Hypertension Hyperlipidemia Diabetes 2D DIMENSIONS Left Atrium(2D)3.2 (1.6-4.0cm)IVSd1.2 (0.7-1.1cm) Aortic Root(2D)3.3 (2.0-3.7cm)LVDd5.8 (3.9-5.9cm) LVOT Diameter2.0 (1.8-2.4cm)PWd1.1 (0.7-1.1cm) LVDs3.6 (2.5-4.0cm)FS (%) 38.1 % SV112.2 mlLVEF(%)67.6 (>50%) Aortic Valve AoV Peak Bruce.155.8cm/sAoV VTI27.8cm AO Peak GR.9.7mmHgLVOT Peak Bruce.137.2cm/s LVOT VTI 24.75cmAO Mean GR.5mmHg SHRUTHI (VMAX)2.24de1KQG (VTI)2.85cm2 AI P 1/2 Dspe031uj Mitral Valve MV E Ufdxmwol100.6cm/sMV E Peak Gr.161mmHg MV DECEL [id number] A Ihjdjaee032.8cm/s MV E Mean Gr.4mmHgE/A Ratio0.9 Pulmonary Valve PV Peak Lcweuikh82.8cm/sPV Peak Grad.4mmHg Tricuspid Valve TR P. Xmprihtz540qw/sRAP [id number] TR Peak Gr.746bnDuTDKB366sxQw LEFT VENTRICLE The left ventricle is normal size. There is mild to moderate concentric left ventricular hypertrophy. The left ventricular systolic function is normal and the ejection fraction is within normal range. T he Ejection Fraction is 55-60%. There is normal LV segmental wall motion. Tissue Doppler imaging reve als moderate left ventricular diastolic dysfunction. There is moderate sized ventricular septal defec t present. RIGHT VENTRICLE The right ventricle is normal size. There is normal right ventricular wall thickness. The right ventr icular systolic function is normal. ATRIA The left atrium is moderately dilated. The right atrium size is normal. The interatrial septum is int act with no evidence for an atrial septal defect or patent foramen ovale as noted on 2-D or Doppler i maging. AORTIC VALVE The aortic valve is normal in structure and function. Doppler and Color Flow revealed mild aortic reg urgitation. Calculated aortic valve area is 3.7 cm2 with maximum pressure gradient of 10 mmHg and addie n pressure gradient of 5 mmHg. MITRAL VALVE Mitral annular calcification is moderate. There is no evidence of mitral valve prolapse. There is a m itral valve mean gradient of 4.31 mmHg. TRICUSPID VALVE The tricuspid valve is normal in structure and function. Doppler and Color Flow revealed trace tricus pid regurgitation. There is no tricuspid valve stenosis. PULMONIC VALVE Doppler and Color Flow revealed trace pulmonic valvular regurgitation. There is no pulmonic valvular stenosis. GREAT VESSELS The aortic root is normal in size. The ascending aorta is normal in size. The IVC is normal in size a nd collapses >50% with inspiration. PERICARDIAL EFFUSION There is no evidence of significant pericardial effusion. Critical Notification Critical Value: No <Conclusion> The left ventricular systolic function is normal and the ejection fraction is within normal range. Th e Ejection Fraction is 55-60%. There is normal LV segmental wall motion. There is moderate sized ventricular septal defect present. Signed by : Odalys Stephen, Electronically Approved : 07/11/2021 16:32:02
== END ==
LOC: ECHO 09:48
PROVIDERS: ATTEND Internal Medicine Cardiovascular Disease
DX: I08.0 Rheumatic disorders of both mitral and aortic valves (principal); I25.10 Atherosclerotic heart disease of native coronary artery without angina pectoris
CPT/HCPCS: 93306

== ENCOUNTER → 2021-07-25 | Outpatient (CLI) | payer MEDICARE ==
[2021-07-25 15:35] LABS: BASO # 0.1 x10^3/uL (0.0-0.2); BASO % 1 % (0-3); EOS # 0.2 x10^3/uL (0.0-0.7); EOS % 2 % (0-3); HEMATOCRIT 31.9 % (36.0-47.0); HEMOGLOBIN 10.2 g/dL (12.0-15.5); LYMPH # 0.6 x10^3/uL (1.0-4.8); LYMPH % 9 % (24-48); MEAN CORPUSCULAR HEMOGLOBIN 29 pg (25-35); MEAN CORPUSCULAR HGB CONC 32 g/dL (31-37); MEAN CORPUSCULAR VOLUME 92 fL (79-100); MONO # 0.4 x10^3/uL (0.0-1.1); MONO % 6 % (0-9); NEUT # 5.7 x10^3uL (1.8-7.7); NEUT % 82 % (31-73); PLATELET COUNT 206 x10^3/uL (140-400); RED BLOOD COUNT 3.46 x10^6/uL (3.50-5.40); RED CELL DISTRIBUTION WIDTH 15.7 % (11.5-14.5)
[2021-07-25 15:53] LABS: ALBUMIN 3.5 g/dL (3.4-5.0); ALBUMIN/GLOBULIN RATIO 0.9 (1.0-1.7); CALCIUM 8.9 mg/dL (8.5-10.1); CREATININE 1.5 mg/dL (0.6-1.0); GFR 39.9; POTASSIUM 3.7 mmol/L (3.5-5.1); TOTAL BILIRUBIN 0.9 mg/dL (0.2-1.0); TOTAL PROTEIN 7.3 g/dL (6.4-8.2)
[2021-07-26 20:39] LABS: CHOLESTEROL/HDL RATIO 3.1
== END ==
LOC: LAB 14:33
PROVIDERS: ATTEND Internal Medicine Cardiovascular Disease
DX: I10 Essential (primary) hypertension (principal)
CPT/HCPCS: 36415; 80053; 80061; 85025

== ENCOUNTER 2021-08-06 14:58 | Emergency (ER) | payer MEDICARE ==
[~2021-08-06] VITALS: Ht 165.1 cm; Wt 54.6 kg
--- NOTE | 2021-08-06 16:44 | RAD ---
EXAM: Chest, single view. HISTORY: Short of breath. COMPARISON: 01/09/2021 FINDINGS: A frontal view of the chest is obtained. There is diffuse interstitial infiltrate superimpo sed on suspected chronic interstitial changes. There is no pleural effusion or pneumothorax. There is a stable cardiac silhouette and evidence of prior CABG. There are calcified granulomas. IMPRESSION: Diffuse interstitial infiltrate superimposed on chronic interstitial changes. Electronically signed by: Allison Kyle MD (08/06/2021 4:42 PM) [id number]
--- NOTE | 2021-08-06 16:46 | EKG ---
[address] [address] Test Date: 2021-08-06 Test Time: 16:39:02 Pat Name: MARISELA JOHNSON Department: Room: Gender: F General Matcher: BLAKE : 1935 Requested By: LALY LOPEZ Order Number: [id number] Reading MD: Sumit Martínez Measurements Intervals [place] Rate: 77 P: 35 SC: 164 QRS: 10 QRSD: 142 T: 137 QT: 420 QTc: 477 Interpretive Statements SINUS RHYTHM LEFT ATRIAL ABNORMALITY LEFT BUNDLE BRANCH BLOCK Electronically Signed On 08-08-2021 19:38:38 CERTIFIED PESTICIDE APPLICATOR by Sumit Martínez
--- NOTE | 2021-08-06 17:03 | PHYS DOC ---
Past History Past Medical History: Arthritis, CVA, Diabetes, High Cholesterol, Other Additional Past Medical Histor: NEUROPATHY; pt has "hole in heart" (LALY LOPEZ APRN) Past Surgical History: Other Additional Past Surgical Histo: CARDIAC STENT (LALY LOPEZ APRN) Alcohol Use: None (LALY LOPEZ APRN) Adult General Chief Complaint Chief Complaint: SHORTNESS OF BREATH HPI HPI HPI limited to patient's daughter's explanation of events as patient has severe dementia. Patient is a 85-year-old female who presents to the emergency department with daughter at bedside who is concerned she noticed her mother having symptoms of shortness of breath while walking around today that seemed to resolve when she was at rest. Denies any increased cough, patient denies chest pain or shortness of breath or chest palpitations. Patient denies other physical complaints or physical concerns. The patient's daughter denies the patient altered in mentation, states she is at baseline for her dementia, reports a history of congestive heart failure, a hole in her heart, denies other health history. Patient does not smoke cigarettes, does not drink alcohol or use illicit drugs. (LALY LOPEZ APRN) Review of Systems Review of Systems ROS limited to patient's daughters chief complaints as patient has history of severe dementia. (LALY LOPEZ APRN) Allergies Allergies Allergies Coded Allergies Type Severity Reaction Last Updated Verified Sulfa (Sulfonamide Antibiotics) Allergy Intermediate 08/06/21 Yes angiotensin II acetate, human Allergy Intermediate 08/06/21 Yes minoxidil Allergy Intermediate 08/06/21 Yes (LALY LOPEZ APRN) Physical Exam Physical Exam Constitutional: Well developed, well nourished, no acute distress, non-toxic appearance. 85-year-old female in no apparent distress. HENT: Normocephalic, atraumatic. Bilateral TMs intact within normal limits, patent bilateral nasal turbinates, oropharynx moist, pink, no deep tissue infectious process appreciated. Lymphadenopathy of the head and neck appreciated. Eyes: Conjunctiva normal, no discharge. Neck: Normal range of motion, no stridor. Cardiovascular: No cyanosis appreciated, distal cap refill less than 2 seconds. Regular rate and rhythm, murmur appreciated for auscultation. Lungs & Thorax: Patient is in no respiratory distress, no audible adventitious lung sounds appreciated. Lung sounds clear upper lobes, diminished bilateral lower lobes. Slight tachypnea appreciated without use of a sensory muscles. Respirations 28/min the patient is not hypoxic, 98% on room air. Abdomen: Nontender, no abnormalities noted. Skin: Warm, dry, no erythema, no rash. Back: No tenderness, no deformities. Extremities: No tenderness, no cyanosis, no clubbing, ROM intact, no edema. Neurologic: Alert and oriented to self only, this is at baseline per daughter's statement at bedside, normal motor function, normal sensory function, no focal deficits noted. Psychologic: Affect normal, judgement normal, mood normal. (LALY LOPEZ APRN) Current Patient Data Vital Signs Vital Signs Date Time Temp Pulse Resp B/P (MAP) Pulse Ox O2 Delivery O2 Flow Rate FiO2 08/06/21 16:15 76 20 154/65 (94) 97 Room Air 08/06/21 15:35 99.5 (LALY LOPEZ APRN) EKG EKG EKG performed at 1639 by ED nursing staff shows a sinus rhythm with left atrial abnormality and left bundle branch block, no STEMI per sgarbossa's criteria, heart rate 77 bpm without other ectopy, [place] interval 0.164, QTc interval 0.477, no acute STEMI, no ACS, no acute ischemia appreciated, EKG interpreted by ED attending physician Dr. Whitaker. (LALY LOPEZ APRN) Radiology/Procedures Radiology/Procedures REASON: Short of breath PROCEDURE: CHEST AP ONLY EXAM: Chest, single view. HISTORY: Short of breath. COMPARISON: 01/09/2021 FINDINGS: A frontal view of the chest is obtained. There is diffuse interstitial infiltrate superimposed on suspected chronic interstitial changes. There is no pleural effusion or pneumothorax. There is a stable cardiac silhouette and evidence of prior CABG. There are calcified granulomas. IMPRESSION: Diffuse interstitial infiltrate superimposed on chronic interstitial changes. Electronically signed by: Allison Kyle MD (08/06/2021 4:42 PM) [id number] (LALY LOPEZ APRN) Heart Score C/O Chest Pain: No Risk Factors: Risk Factors: DM, Current or recent (<one month) smoker, HTN, HLP, family history of CAD, obesity. Risk Scores: Risk Factors: DM, Current or recent (<one month) smoker, HTN, HLP, family history of CAD, obesity. (LALY LOPEZ APRN) C/O Chest Pain: No HEART Score for Chest Pain: HEART Score for Chest Pain Response (Comments) Value History Slighlty/Non-Suspicious 0 ECG Nonspecific Repolarizatio 1 Age > 65 2 Risk Factors 1 or 2 Risk Factors 1 Troponin >1-<3x Normal Limit 1 Total 5 (LESLIE AVILA MD) Course & Med Decision Making Course & Med Decision Making Pertinent Labs and Imaging studies reviewed. (See chart for details) 85-year-old female, vital signs reviewed, resents emerged from concerning increased shortness of breath on exertion at home that started today per family's report. Patient has a history of severe dementia, denies illnesses, denies shortness of breath or chest pain. Will order EKG, chest x-ray, CBC, CMP, high-sensitivity troponin, NT proBNP, urinalysis assay. Rapid flu and rapid Covid testing. Patient had elevated high-sensitivity troponin, reported 101, upon review of troponin history, patient has had elevated troponins in the past, will order serial 2-hour troponin draws, patient denies chest pains, there is no ST elevation, ACS, or ischemia appreciated on EKG. Patient tested positive for rapid Covid and rapid flu B, chest x-ray concerning for acute on chronic lung interstitial changes, will start on community-acquired pneumonia regimen 1 g Rocephin IV, 500 mg Zithromax, will start on Tamiflu related to flu be positive. Urinalysis assay pending at this time. End of shift report given to ED attending physician Dr. Avila who has assumed patient care at this time. (LALY LOPEZ APRN) Course & Med Decision Making Accepted patient care at shift change pending urine and repeat troponin. Patient ambulated up and down the delcid with a pulse ox and did not desaturate or become tachypneic. She does not seem to be in any respiratory distress and denies any other complaints. She is positive for influenza B and COVID-19. (LESLIE AVILA MD) Dragon Disclaimer Dragon Disclaimer This electronic medical record was generated, in whole or in part, using a voice recognition dictation system. (LALY LOPEZ APRN) Departure Departure: Impression: Primary Impression: COVID-19 Additional Impression: Influenza B Disposition: HOME / SELF CARE / HOMELESS Condition: STABLE Referrals: JOANIE COSTA MD (PCP) Patient Instructions: Influenza, Adult Additional Instructions: Take medications as prescribed. Recommend getting a pulse oximeter and periodically checking oxygen saturation if there are any signs of shortness of breath. Encourage deep breathing and treat symptoms with [id number] medications. Return to emergency department if oxygen saturation is staying below 88-89% for more than 15 to 20 minutes despite taking deep breaths. Having difficulty picking up the reading on the pulse oximeter recommend removing nail croatian and making sure fingers are warm. You have been tested for or diagnosed with COVID-19. It is an infection caused by a new type of coronavirus. COVID-19 will cause cold-like or mild flu symptoms in most. It can cause more severe symptoms like problems breathing in some. There is no treatment for COVID-19. The body will clear the infection over time. Self-care will help to ease discomfort. Steps to Take: Self-Care Rest as needed. Healthy habits may help you feel better. Steps include: Choose healthy foods including fruits and vegetables. Drink water throughout the day. Get plenty of sleep each night. If you smoke, try to quit. It may ease breathing. Avoid alcohol. Keep Others Healthy The virus can spread to others. Droplets are released every time you sneeze or cough. The droplets can get into the mouth, nose, or eyes of people near you and lead to infection. To lower the chances of spreading COVID-19 to others: Stay at home until your doctor has said it is safe to leave. If you tested positive this will mean staying isolated until both of the following are true: At least 7 days have passed since the start of illness. You are free of fever for at least 72 hours without the use of medicine. During this time: - Avoid public areas, events, or transportation. Do not return to work or school until your doctor has said it is safe to do so. - Call ahead if you need to go to a medical center. Let them know you may have COVID-19. It will help them guide you where to go. They may also ask you to wear a facemask when you come to the office. - If you call for emergency medical services, let them know you may have COVID- 19. While at home: - Try to avoid close contact with others. Stay about 6 feet away. - If possible, spend most of your time in a separate room from others. - Use a face mask if you will be in close contact with others such as sharing a room or vehicle. - Have someone wipe down common surfaces in the home. Use household mobile game engineer every day on areas like doorknobs, counters, or sinks. - Cough or sneeze into a tissue. Throw the tissue away right after use. If a tissue is not available, cough or sneeze into your elbow. - Wash your hands often. Wash them after sneezing or coughing. Use soap and water and wash for at least 20 seconds. Alcohol based hand loom cleaner can be used if soap and water is not available. - Do not prepare food for others. Avoid sharing personal items like forks, spoons, or toothbrushes. - Avoid close contact with pets while you are sick. There is no evidence of the virus passing to pets. This is a safety step until more is known about this virus. Isolation can be frustrating. Social interaction can help. Keep in touch with friends and family through phone and tech options. You can still interact with others in your home, just keep a safe distance of about 6 feet. Follow-up: Your doctors office will check in with you to see if there are any changes in your health. You may be asked to keep track of symptoms to share with them. They will also let you know when you are clear to be in public again. Problems to Look Out For: Contact your doctor if your recovery is not going as you expect. Get emergency care if you have problems such as: - Trouble breathing - Nonstop chest pain or pressure - Changes in awareness, confusion, or problems waking - Lips or face have bluish color - Worsening of symptoms If you think you have an emergency, call for emergency medical services right away. As taken from [facility] Azithromycin (AZITHROMYCIN TABLET) 250 Mg Tablet 1 PKG PO UD for antibiotic for 5 Days, #6 TAB 0 Refills 2 the first day followed by 1 for days 2-5 Prov: LESLIE AVILA MD 08/06/21 Oseltamivir Phosphate (TAMIFLU) 75 Mg Capsule 1 CAP PO BID for ifluenza for 5 Days, #10 CAP Prov: LESLIE AVILA MD 08/06/21 Problem Qualifiers LALY LOPEZ APRN Aug 06, 2021 17:03 LESLIE AVILA MD Aug 06, 2021 19:46
[2021-08-06 17:26] LABS: BASO % 0 % (0-3); EOS # 0.1 x10^3/uL (0.0-0.7); EOS % 1 % (0-3); HEMATOCRIT 28.7 % (36.0-47.0); HEMOGLOBIN 9.2 g/dL (12.0-15.5); LYMPH # 0.6 x10^3/uL (1.0-4.8); LYMPH % 9 % (24-48); MEAN CORPUSCULAR HEMOGLOBIN 29 pg (25-35); MEAN CORPUSCULAR HGB CONC 32 g/dL (31-37); MEAN CORPUSCULAR VOLUME 91 fL (79-100); MONO # 0.4 x10^3/uL (0.0-1.1); MONO % 7 % (0-9); NEUT # 5.5 x10^3uL (1.8-7.7); NEUT % 83 % (31-73); PLATELET COUNT 164 x10^3/uL (140-400); RED BLOOD COUNT 3.17 x10^6/uL (3.50-5.40); RED CELL DISTRIBUTION WIDTH 16.2 % (11.5-14.5); WHITE BLOOD COUNT 6.6 x10^3/uL (4.0-11.0)
[2021-08-06 17:36] LABS: CALCIUM 8.3 mg/dL (8.5-10.1); CREATININE 1.7 mg/dL (0.6-1.0); GFR 34.6; POTASSIUM 3.1 mmol/L (3.5-5.1)
[2021-08-06 17:54] LABS: ALBUMIN 2.8 g/dL (3.4-5.0); ALBUMIN/GLOBULIN RATIO 0.8 (1.0-1.7); MAGNESIUM 2.2 mg/dL (1.8-2.4); PHOSPHORUS 2.3 mg/dL (2.6-4.7); TOTAL BILIRUBIN 1.4 mg/dL (0.2-1.0); TOTAL PROTEIN 6.5 g/dL (6.4-8.2)
[2021-08-06] MEDS ORDERED: POTASSIUM CHLORIDE 20 MEQ TABLET.ER. PO ONE (18:00)
[2021-08-06 18:02] LABS: INFLUENZA A PATIENT NEGATIVE (NEGATIVE)
[2021-08-06 18:03] LABS: INFLUENZA B PATIENT POSITIVE (NEGATIVE)
[2021-08-06] MEDS ORDERED: cefTRIAXone SODIUM 1 GM VIAL ONE (18:13)
[2021-08-06] MEDS ORDERED: IV NORMAL SALINE 50ML 50 ML ONE (18:13)
[2021-08-06] MEDS ORDERED: AZITHROMYCIN 250 MG TABLET. PO ONE (18:15)
[2021-08-06] MEDS ORDERED: OSELTAMIVIR 75 MG CAPSULE PO ONE (19:15)
[2021-08-06 19:52] LABS: BILIRUBIN,URINE NEG (NEG); CLARITY,URINE CLEAR; COLOR,URINE YELLOW; GLUCOSE,URINE NEG (NEG)
[2021-08-06 19:53] LABS: BACTERIA,URINE 0 /HPF (0-FEW); NITRITE,URINE NEG (NEG); WBC,URINE 0 /HPF (0-4)
[2021-08-06] MEDS ORDERED: OSEL75CA PO (19:58)
[2021-08-06] MEDS ORDERED: AZIT250T6 PO (19:58)
[2021-08-06 20:30] VITALS: BP 164/73
[2021-08-08] MEDS ORDERED: ATOR40TA59 PO (16:21)
[2021-08-08] MEDS ORDERED: FURO40TA4 PO (16:23)
[2021-08-08] MEDS ORDERED: CARV25TA2 PO (16:24)
== END 2021-08-06 20:35 | disposition home or self-care (01) ==
LOC: ER 14:58
DX: U07.1 COVID-19 (principal); J10.1 Influenza due to other identified influenza virus with other respiratory manifestations; M19.90 Unspecified osteoarthritis, unspecified site; E78.00 Pure hypercholesterolemia, unspecified; E11.40 Type 2 diabetes mellitus with diabetic neuropathy, unspecified; Z86.73 Personal history of transient ischemic attack (TIA), and cerebral infarction without residual deficits; Z88.2 Allergy status to sulfonamides; Z88.8 Allergy status to other drugs, medicaments and biological substances
CPT/HCPCS: 36415; 71045; 80053; 81001; 82553; 83690; 83735; 83880; 84100; 84484; 85025; 87040; 87428; 93005; 96365; 99285; J0696; P9612

== ENCOUNTER 2021-08-09 17:05 | Inpatient (IN) | payer OTHER ==
[~2021-08-09 17:05] MED LIST changes: +ATOR40TA59 PO; +AZIT250T6 PO; +FURO40TA4 PO; +OSEL75CA PO
--- NOTE | 2021-08-09 18:03 | NUR ---
Nsg Note; admit to inpatient Hospice care [facility] Daughter Shree here to spend time with pt.
[2021-08-09] MEDS ORDERED: SCOPOLAMINE 1.5MG PATCH. TD SCH (18:15)
[2021-08-09] MEDS ORDERED: ACETAMINOPHEN 650 MG SUPP.RECT. PR PRN (18:15)
[2021-08-09] MEDS ORDERED: BISACODYL 10 MG SUPP.RECT PR PRN (18:15)
[2021-08-09] MEDS ORDERED: ONDANSETRON PF 4 MG/2 ML VIAL. IVP PRN (18:15)
[2021-08-09 19:00] VITALS: BP 153/73
[2021-08-09] MEDS ORDERED: MORPHINE SULFATE 2 MG/ML DISP.SYRIN. IV PRN (19:00)
[2021-08-09] MEDS: IV NORMAL SALINE 1,000ML 1,000 ML IV SCH (22:09)
[2021-08-09] MEDS: MORPHINE SULFATE 30 MG/30 ML 30 ML IV PRN (22:09)
--- NOTE | 2021-08-10 06:38 | NUR ---
Pt is resting peacefully.
[2021-08-10] MEDS: MORPHINE SULFATE 30 MG/30 ML 30 ML IV PRN (09:20)
[2021-08-10 12:00] VITALS: BP 122/66
[2021-08-10] MEDS ORDERED: MORPHINE HIGH DOSE PCA 50 ML IV PRN ×2 (12:00→13:15)
--- NOTE | 2021-08-10 16:09 | HP ---
DATE OF SERVICE: 08/10/2021 ADMIT DATE: 08/09/2021 HISTORY OF PRESENT ILLNESS: The patient is an 85-year-old -[place] female patient who was discharged to inpatient hospice care. She was seen in the Emergency Room with altered mental status, acute on chronic kidney injury, non-ST segment elevation myocardial infarction. She was also positive for influenza B and COVID-19. Her kidney function has steadily worsened and we had a lengthy discussion with her daughter and a decision was made to admit her to inpatient hospice care. PHYSICAL EXAMINATION: GENERAL: When I saw her today, she was resting comfortably, in no apparent respiratory distress. She was pale, but not jaundiced, cyanosed. No lymphadenopathy, no thyromegaly, no jugular venous distention. No limb edema. VITAL SIGNS: His heart rate was 89, blood pressure is 122/66, temperature was 96.8, respiratory rate was ____ and oxygen saturation was 83%. HEAD, EYES, EARS, NOSE, AND THROAT: Normocephalic, atraumatic. NECK: Supple. HEART: Normal first and second heart sounds. No gallop, rub or murmur. CHEST: Showed central trachea, equal bilateral chest expansion, air entry, vesicular breath sounds. No crepitation or rhonchi anteriorly. ABDOMEN: Scaphoid, soft, nontender. NEUROLOGIC: She has left-sided hemiplegia. She is now on a morphine drip at 14 mL per hour. She is also on Tylenol, Zofran, scopolamine and lorazepam as needed. ASSESSMENT AND PLAN: 1. Influenza B. 2. COVID-19 pneumonia. 3. Acute hypoxic respiratory failure. 4. Acute on chronic kidney injury. 5. Non-ST segment elevation myocardial infarction. 6. Acute systolic congestive heart failure. 7. CT scan also showed that the patient has multiple infarcts involving left frontal, parietal, occipital and cerebellar infarct. ANGELITO/AN/ROSAURA DR: Ridge TID: [id number]
[2021-08-10] MEDS: IV NORMAL SALINE 1,000ML 1,000 ML IV SCH (17:14)
[2021-08-10 19:30] VITALS: BP 86/46
--- NOTE | 2021-08-11 02:56 | NUR ---
0215 Patient was pronounced by Jonathan Mcleod, RN and Farida Kim, RN. 0224 reported to [facility]. 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 [phone] Son's phone was called but answered by lCarissa Carlin, patient's daughter. Daughter informed of her mother's passing. Stated that mother's son, Benjy, was in the hospital. Daughter stated the family would like the [facility] [place], to be called for services. [phone]
--- NOTE | 2021-08-11 03:26 | NUR ---
Nursing Aid and this RN went in to pts room to turn her and silent pump until Morphine was able to be brought to floor by Nursing Assistant Terminal Manager. While in pts room her heart rate dropped in to the 30s. Pt heart rate and respirations quickly were at 0. Pt was pronounced at 0215. Heather Nursing Assistant Terminal Manager was notified of pts passing. This RN notified [facility] of pt passing. Heather also notified Daughter, [facility] and [facility] of pt passing. Pts body was picked up at 0320 by [facility]. Pts belongings went with pt to Home.
== END 2021-08-11 03:20 | DRG 177 ==
LOC: 1 SOUTH 17:43
PROVIDERS: ADMIT Internal Medicine; ATTEND Internal Medicine
DX: U07.1 COVID-19 (principal); I21.4 Non-ST elevation (NSTEMI) myocardial infarction; I50.21 Acute systolic (congestive) heart failure; I63.9 Cerebral infarction, unspecified; J10.08 Influenza due to other identified influenza virus with other specified pneumonia; J12.82 Pneumonia due to coronavirus disease 2019; J96.01 Acute respiratory failure with hypoxia; N17.9 Acute kidney failure, unspecified; G81.94 Hemiplegia, unspecified affecting left nondominant side; N18.9 Chronic kidney disease, unspecified; Z51.5 Encounter for palliative care; Z88.2 Allergy status to sulfonamides; Z88.8 Allergy status to other drugs, medicaments and biological substances
CPT/HCPCS: J2270; Q5005; J7030